=== PATIENT | female | born 1980 | race Caucasian/White ===

== ENCOUNTER 2017-08-11 05:06 | Day surgery (SDC) | payer BC, OTHER ==
[2017-08-08 17:31] VITALS: BMI 33.9
[2017-08-11] MEDS ORDERED: fentaNYL CITRATE 250 MCG/5 ML VIAL ONE (13:14)
[2017-08-11] MEDS ORDERED: ePHEDrine SULFATE 50 MG/1 ML AMPULE ONE (13:14)
[2017-08-11] MEDS ORDERED: MIDAZOLAM HCL 2 MG/2 ML SINGLE DOSE VIAL ONE ×2 (13:15)
[2017-08-11] MEDS ORDERED: PROPOFOL 20 ML ONE ×2 (13:15)
[2017-08-11] MEDS ORDERED: LIDOCAINE HCL/PF 2% SDV 5ML VIAL ONE (13:17)
[2017-08-11] MEDS ORDERED: DESFLURANE GAS 240 ML BOTTLE IH ONE (13:20)
[2017-08-11] MEDS ORDERED: SEVOFLURANE 250 ML BTL ONE (13:20)
[2017-08-11] MEDS ORDERED: VASOPRESSIN 20 UNITS/ML VIAL IV ONE (13:40)
--- NOTE | 2017-08-11 13:43 | HP ---
Past Medical History - Primary Care Physician PCP:: Que Kendrick - Admission Chief Complaint: 37yo P1 with cystocele and rectocele admitted for vaginal AP repair. History of Present Illness: Pt with c/o rectocele and needs to insert her finger to press on posterior vagina with bowel movements. 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: No: Alzheimer's, CVA, Dementia, Migraine, Multiple Sclerosis, Peripheral Neuropathy, Parkinson's, Seizure, Syncope, TIA, Vertigo, Other Cardiovascular: No: AFIB, Aneurysm, Aortic Insufficiency, Aortic Stenosis, CAD, CHF, Deep Vein Thrombosis, HTN, Hyperlipdemia, MS, Mitral Insufficiency, Mitral Stenosis, Murmur, Pulmonary Hypertension, Other Pulmonary: No: Asthma, Bronchitis, Cancer, COPD, O2 Dependent, Pneumonia, Previously Intubated, Pulmonary Embolus, Pulmonary Fibrosis, Sleep Apnea, Other Gastrointestinal: No: Ascites, Cancer, Constipation, Crohn's Disease, Diverticulitis, Diverticulosis, Esophageal Varices, Gastritis, GERD, GI Bleed, Hemorrhoids, Hiatal Hernia, Inflamatory Bowel Disease, Irritable Bowel Disease, Pancreatitis, Peptic Ulcer Disease, Ulcerative Colitis, Other Hepatobiliary: No: Cirrhosis, Cholelithiasis, Cholecystitis, Choledocholithiasis , Hepatitis A, Hepatitis B, Hepatitis C, Other Renal/: No: Renal Failure, Renal Inusuff, BPH, Cancer, Hematuria, Hemodialysis , Neurogenic Bladder, Renal Calculi, UTI, Other Reproductive: No: Ectopic , Endometriosis, Fibroids, PID, Polycystic Ovary Syndrome, Postmenopausal, Other ...Para: 1 Heme/Onc: No: Anemia, B12 Deficiency, Bleeding Disorder, Cancer, Current Chemotherapy, Current Radiation Therapy, Hemochromatosis, Hypercoaguable State, Myeloproliferative Synd, Sickle Cell Disease, Sickle Cell Trait, Thrombocytopenia, Other Infectious Disease: No: AIDS, C-Diff, Herpes Zoster, HIV, MRSA, STD's, Tuberculosis, VREF, Other Psych: No: Addictions, Anxiety, Bipolar, Depression, Panic, Psychosis, Schizophrenia, Other Musculoskeletal: No: Bursitis, Chronic low back pain, Hemiparesis, Hemiplegia, Osteoarthritis, Paraplegia, Other Rheumatology: No: Fibromyalgia, Gout, Lupus, Rheumatoid Arthritis, Sarcoidosis, Vasculitis, Other ENT: No: Allergic Rhinitis, Sinusitis, Other Endocrine: No: [place]'s Disease, Osiris's Disease, Diabetes Insipidus, Diabetes Mellitus, Hyperparathyroidism, Hyperthyroidism, Hypothyroidism, Osteopenia, SIADH, Other Dermatology: No: Basal Cell, Cellulitis, Eczema, Melanoma, Psoriasis, Squamous Cell, Other - Past Surgical History Past Surgical History: Yes: None Hx Myomectomy: No Hx Transabdominal Cerclage: No - Smoking History Smoking history: Never smoked - Alcohol/Substance Use Hx Alcohol Use: Yes (socially) History of Substance Use: reports: None - Social History Usual Living Arrangement: Yes: Alone, With Child ADL: Independent History of Recent Travel: No Home Medications - Allergies Allergies/Adverse Reactions: Allergies Allergy/AdvReac Type Severity Reaction Status Date / Time No Known Drug Allergies Allergy Verified 08/08/17 17:32 - Home Medications Home Medications: Ambulatory Orders NK [No Known Home Medication] 08/08/17 Family Disease History - Family Disease History Family Disease History: Other: Mother (HTN) Review of Systems - Review of Systems Constitutional: reports: No Symptoms Eyes: reports: No Symptoms HENT: reports: No Symptoms Neck: reports: No Symptoms Cardiovascular: reports: No Symptoms Respiratory: reports: No Symptoms Gastrointestinal: reports: Constipation Genitourinary: reports: No Symptoms Breasts: reports: No Symptoms Reported Musculoskeletal: reports: No Symptoms Integumentary: reports: No Symptoms Neurological: reports: No Symptoms Endocrine: reports: No Symptoms Hematology/Lymphatic: reports: No Symptoms Psychiatric: reports: No Symptoms Pain Intensity: 0 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: Vital Signs Temperature 98.1 F 08/11/17 12:22 Pulse Rate 61 08/11/17 12:22 Respiratory Rate 18 08/11/17 12:22 Blood Pressure 106/69 08/11/17 12:22 O2 Sat by Pulse Oximetry (%) 99 08/11/17 12:31 Constitutional: Yes: Well Nourished, No Distress, Calm Eyes: Yes: WNL, Conjunctiva Clear, EOM Intact HENT: Yes: WNL, Atraumatic, Normocephalic Neck: Yes: WNL, Supple, Trachea Midline Cardiovascular: Yes: WNL, Regular Rate and Rhythm Respiratory: Yes: WNL, Regular, CTA Bilaterally Gastrointestinal: Yes: WNL ...Rectal Exam: Yes: WNL Renal/: Yes: WNL Pelvis: Yes: WNL External Genitalia: Yes: Normal Internal Exam Deferred: No Vaginal Exam: Yes: Other (Rectocele, cystocele) Cervix: Yes: Normal Uterus: Yes: Normal Adnexa: Normal: Left, Right Musculoskeletal: Yes: WNL Extremities: Yes: WNL Edema: No Integumentary: Yes: WNL Neurological: Yes: WNL, Alert, Oriented ...Motor Strength: WNL Psychiatric: Yes: WNL, Alert, Oriented Assessment/Plan 37yo P1 admitted for rectocele and cystocele repair. We discussed the risks, benefits, and alternatives of surgery, including but not limited to bleeding, pain, infection, dyspareunia, recurrent symotoms. The pt was also advised that all surgeries have risks and no guarantees can be provided.
[2017-08-11] MEDS ORDERED: DEXAMETHASONE SOD PHOSPHATE 4 MG/1 ML VIAL ONE (13:44)
[2017-08-11] MEDS ORDERED: ceFAZolin SODIUM 1 GM VIAL IVPB ONE (13:56)
[2017-08-11] MEDS ORDERED: ACETAMINOPHEN INJECTION 100 ML IVPB ONE (14:15)
[2017-08-11] MEDS ORDERED: KETOROLAC TROMETHAMINE 30 MG/1 ML VIAL ONE (14:22)
[2017-08-11] MEDS ORDERED: ONDANSETRON 4 MG/2 ML VIAL IVPUSH PRN (15:43)
[2017-08-11] MEDS ORDERED: PROMETHAZINE HCL 25 MG/1 ML VIAL IVPB PRN (15:43)
[2017-08-11] MEDS ORDERED: LACTATED RINGERS SOLUTION 1,000 ML IV SCH (15:45)
--- NOTE | 2017-08-11 15:50 | OP ---
Operative Note - Note: Operative Date: 08/11/17 Pre-Operative Diagnosis: Retocele Operation: Posterior vaginal repair Findings: Rectocele Post-Operative Diagnosis: Same as Pre-op Surgeon: Que Kendrick Senior Escrow Officer: Mook Farley Anesthesiologist/POULTRY PICKING MACHINE TENDER: Cyril Murguia Anesthesia: General Specimens Removed: Vaginal mucosa Estimated Blood Loss (mls): 80 Drains & Tubes with Location: Straight cath Drains, Volume Out (mls): 425 Blood Volume Replaced (mls): 0 Fluid Volume Replaced (mls): 1,000 Operative Report Dictated: Yes
--- NOTE | 2017-08-11 16:38 | DS ---
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 Vital Signs: Vital Signs Temperature 98.6 F 08/11/17 15:38 Pulse Rate 73 08/11/17 16:00 Respiratory Rate 21 08/11/17 16:00 Blood Pressure 109/61 08/11/17 16:00 O2 Sat by Pulse Oximetry (%) 100 08/11/17 16:00 Constitutional: Yes: Well Nourished, No Distress, Calm Eyes: Yes: WNL, Conjunctiva Clear HENT: Yes: WNL, Atraumatic, Normocephalic Neck: Yes: WNL, Supple, Trachea Midline Cardiovascular: Yes: WNL, Regular Rate and Rhythm Respiratory: Yes: WNL, Regular, CTA Bilaterally Gastrointestinal: Yes: WNL, Normal Bowel Sounds, Soft ...Rectal Exam: Yes: Deferred Renal/: Yes: WNL Pelvis: Yes: WNL Internal Exam Deferred: No Vaginal Exam: Yes: Other (vaginal packing removed- lightly stained) Musculoskeletal: Yes: WNL Extremities: Yes: WNL Edema: No Integumentary: Yes: WNL Wound/Incision: Yes: Clean/Dry, Well Approximated Neurological: Yes: WNL, Alert, Oriented ...Motor Strength: WNL Psychiatric: Yes: WNL, Alert, Oriented Discharge Summary Reason For Visit: RECTOCELE W/O MENTION OF UTER PROLAPSE Rectocele Procedures: Principal: Posterior vaginal repair Hospital Course: Normal recovery Condition: Good - Instructions Diet, Activity, Other Instructions: Dr. Que Kendrick Manager Aviation discharge instructions Physical activity Resume your normal everyday activity as tolerated no heavy lifting or exercise until seen by your surgeon. You may walk unlimited katy of and climb stairs. You may resume driving the car when you feel safe and comfortable behind the wheel. No sexual activity as instructed by Dr. Kendrick. Wound care If you have a bandage, leave it on, and keep dry for 48-72 hours. After that time discard the outer bandage. If they are tapes on the skin under the out of bandage leave them in place. They will peel off in the next 7 to 10 days. Do Not Peel them off. You may shower the day after surgery. If there are tapes present on the skin, you may shower over them. Diet There are no dietary restrictions. Eat healthy, high-fiber foods. Drink 6 to 8 glasses of liquid each day. This will assist in keeping your bowels are regular. Pain management You may take Tylenol or acetaminophen or Ibuprofen (for example, Motrin, Advil etc.) from my pain prescription medication is ordered should be taken as prescribed for moderate to severe pain. Call Dr. Kendrick for any of the following: Severe pain not relieved by medication Fever of 101 or higher Excessive bleeding or drainage on dressing Inability to urinate Call the office at [phone] for an appointment in seven days. Referrals: Que Kendrick MD [Staff Physician] - Disposition: HOME - Home Medications Comprehensive Discharge Medication List: Ambulatory Orders NK [No Known Home Medication] 08/08/17
[2017-08-11] MEDS ORDERED: HYDROmorphone HCL CARPU-JECT 2 MG/1 ML DISP.SYRIN ONE (16:51)
[2017-08-11] MEDS: HYDROmorphone HCL CARPU-JECT 2 MG/1 ML DISP.SYRIN IVPUSH PRN ×2 (17:00→17:10)
[2017-08-11] MEDS ORDERED: oxyCODONE HCL 5 MG TABLET ONE (18:22)
--- NOTE | 2017-08-11 18:29 | OP ---
DATE OF OPERATION: 08/11/2017 PREOPERATIVE DIAGNOSIS: Vaginal rectocele. POSTOPERATIVE DIAGNOSIS: Vaginal rectocele. PROCEDURE: Posterior vaginal repair. SURGEON: Que Kendrick M.D. SUPERVISOR ELECTRONICS ASSEMBLY: Mook Farley M.D. ANESTHESIOLOGIST: Cyril Murguia M.D. ANESTHESIA: General. COMPLICATIONS: None. ESTIMATED BLOOD LOSS: 80 mL. INTRAVENOUS FLUIDS: 1000 mL. URINE OUTPUT: 425 mL of clear urine at the end of the procedure. PATHOLOGY: Vaginal mucosa. DESCRIPTION OF PROCEDURE: The patient was met preoperatively. Risks, benefits, and alternatives of surgery were discussed. All questions were answered. The patient was then brought to the OR with the IV running. She was placed on the surgical table in the supine position. The general anesthesia was achieved without difficulty. The patient was then placed in a dorsal lithotomy position using adjustable Aguila stirrups. A timeout procedure was conducted as per standard protocol. The patient was then prepped and draped in the usual sterile fashion. A bimanual examination was performed under anesthesia and outlined the rectocele. A mild cystocele was also noted, but due to patient's lack of symptoms, the decision was made to not perform cystocele repair. The upper extent of the vaginal rectocele was identified. The Allis clamp was applied to the posterior vaginal mucosa over the most distal aspect of the vaginal rectocele. Two clamps were also applied to the posterior vaginal mucosa at the level of the hymenal ring. The clamps were elevated, creating a triangle. A longitudinal incision was then made transversely along the posterior fourchette. A Karyn clamp was then inserted underneath the posterior vaginal mucosa, and the vaginal mucosa was dissected away from the perirectal fascia using a Karyn clamp. The vaginal mucosa was then incised along the posterior space. An additional incision was made along the perineal body, and a triangular fragment of the skin was removed from the perineal body. A vertical incision along the posterior vaginal mucosa was then extended to the apex of the rectocele. The perirectal fascia was then dissected away from the posterior vaginal mucosa using sharp and blunt dissection. Good hemostasis was maintained with judicious use of cautery. Once the posterior vaginal mucosa was dissected away from the rectovaginal fascia, a finger was placed inside the rectum to palpate the rectum as well as to outline the area of repair. The gloves were then changed, and a finger was inserted inside the vagina, pushing the rectocele down. The levator ani muscles were identified bilaterally and plicated using a 1-0 Vicryl suture. The apex of the rectocele was also identified, and a 1-0 Vicryl suture was used to plicate the rectovaginal fascia. About 5 or 6 sutures were placed to reapproximate the rectovaginal fascia, and the levator ani muscles. Once this was completed, the excess of vaginal mucosa was excised, and the vaginal mucosa was reapproximated in the middle using a 0 Vicryl running, locking suture. Once the closure of the posterior vaginal wall was completed, at the level of the posterior fourchette, a former hymenal ring was reconstructed. A perineal body was then repaired to approximate the vulvar cavernosus muscles. Once that was completed, the perineal skin was closed with subcutaneous stitch using a 1-0 Vicryl suture. Once the repair was completed, the hemostasis was confirmed. All of the instruments were removed from the patient. Sponge, lap, and instrument counts were correct. A rectal examination was performed, and no rectal sutures were palpated. The patient tolerated the procedure well and was transferred to recovery room in stable condition. Julissa [id number]
--- NOTE | 2017-08-11 19:07 | PN ---
Progress Note (SOAP) - Subjective Chief Complaint: I was called to pt's bed in [facility]. Pt was noted to have some vaginal bleeding through the packing. The pt was noted to have eaten regular food. She has some mild vaginal pain and no other complaints History of Present Illness: POD #0 s/p posterior vaginal repair with vaginal packing in place - Current Medications Current Medications: Active Medications Hydromorphone HCl (Dilaudid Injection -) 0.5 mg IVPUSH [id number] PRN PRN Reason: PAIN-PACU ORDER X 4 DOSES ONLY Last Admin: 08/11/17 17:10 Dose: 0.5 mg Lactated Ringer's (Lactated Ringers Solution) 1,000 mls @ 125 mls/hr IV ASDIR RANDY Ondansetron HCl (Zofran Injection) 4 mg IVPUSH Q6H PRN PRN Reason: NAUSEA AND/OR VOMITING Oxycodone HCl (Roxicodone -) 10 mg PO Q4H PRN PRN Reason: PAIN LEVEL > 4 Promethazine HCl (Phenergan Injection -) 12.5 mg IVPB Q6H PRN PRN Reason: NAUSEA-FOR RESCUE AFTER 15 MIN - Objective Vital Signs: Vital Signs Temperature 98.6 F 08/11/17 15:38 Pulse Rate 67 08/11/17 18:05 Respiratory Rate 16 08/11/17 18:05 Blood Pressure 101/64 08/11/17 18:05 O2 Sat by Pulse Oximetry (%) 98 08/11/17 18:05 Constitutional: Yes: Well Nourished, No Distress, Calm Eyes: Yes: WNL, Conjunctiva Clear, EOM Intact HENT: Yes: WNL, Atraumatic, Normocephalic Neck: Yes: WNL, Supple, Trachea Midline Cardiovascular: Yes: WNL, Regular Rate and Rhythm Respiratory: Yes: WNL, Regular, CTA Bilaterally Gastrointestinal: Yes: WNL, Normal Bowel Sounds, Soft, Abdomen, Obese ...Rectal Exam: Yes: Deferred Genitourinary: Yes: Vaginal Bleeding (vaginal packing in place with mild bleeding.) Musculoskeletal: Yes: WNL Extremities: Yes: WNL Peripheral Pulses WNL: No Edema: No Integumentary: Yes: WNL Wound/Incision: Yes: Bleeding (mild bleeding; packing NOT removed) Neurological: Yes: WNL, Alert, Oriented ...Motor Strength: Yes: WNL Psychiatric: Yes: WNL Assessment/Plan 37yo P1 s/p rectocele repair. Pt with mild postop bleeding. She had just eaten regular food and cannot return to OR given that bleeding is mild, patient is asymptomatic, and general anesthesia presents a risk. However, pt will be admitted for observation. NPO diet in case return to OR. Plan to follow CBC
[2017-08-11] MEDS ORDERED: ACETAMINOPHEN 1000 MG/100 ML VIAL (NON FORMULARY) IVPB PRN (19:23)
[2017-08-11] MEDS ORDERED: LACTATED RINGERS SOLUTION 1,000 ML/1,000 ML INFUS.BAG IV SCH (19:30)
[2017-08-11 20:14] LABS: BASO % 0.2 % (0-2.0); HEMATOCRIT 36.4 % (32.4-45.2); HEMOGLOBIN 12.2 GM/dL (10.7-15.3); LYMPH % 3.1 % (8-40); MCH 29.7 pg (25.7-33.7); MCHC 33.5 g/dl (32.0-36.0); MEAN CELL VOLUME 88.9 fl (80-96); MEAN PLT VOLUME 8.9 fl (7.5-11.1); MONO % 1.8 % (3.8-10.2); NEUT % 94.9 % (42.8-82.8); PLATELET COUNT 283 K/MM3 (134-434); RDW 13.4 % (11.6-15.6); WHITE BLOOD COUNT 18.3 K/mm3 (4.0-10.0)
[2017-08-11] MEDS: oxyCODONE HCL 5 MG TABLET PO PRN (22:20)
[2017-08-12 00:04] LABS: BASO % 0.1 % (0-2.0); HEMATOCRIT 32.7 % (32.4-45.2); HEMOGLOBIN 10.9 GM/dL (10.7-15.3); LYMPH % 7.1 % (8-40); MCH 29.4 pg (25.7-33.7); MCHC 33.3 g/dl (32.0-36.0); MEAN CELL VOLUME 88.3 fl (80-96); MEAN PLT VOLUME 8.4 fl (7.5-11.1); MONO % 4.1 % (3.8-10.2); NEUT % 88.7 % (42.8-82.8); PLATELET COUNT 275 K/MM3 (134-434); RDW 12.9 % (11.6-15.6); WHITE BLOOD COUNT 15.4 K/mm3 (4.0-10.0)
[2017-08-12] MEDS ORDERED: ACETAMINOPHEN INJECTION 100 ML IVPB ONE (03:28)
[2017-08-12] MEDS: oxyCODONE HCL 5 MG TABLET PO PRN ×2 (08:01→12:35)
[2017-08-12 10:09] LABS: BASO % 0.4 % (0-2.0); EOS % 0.4 % (0-4.5); HEMATOCRIT 31.7 % (32.4-45.2); HEMOGLOBIN 10.2 GM/dL (10.7-15.3); LYMPH % 25.2 % (8-40); MCH 29.1 pg (25.7-33.7); MCHC 32.4 g/dl (32.0-36.0); MEAN PLT VOLUME 8.3 fl (7.5-11.1); MONO % 7.2 % (3.8-10.2); NEUT % 66.8 % (42.8-82.8); PLATELET COUNT 244 K/MM3 (134-434); RBC 3.52 M/mm3 (3.60-5.2); RDW 13.1 % (11.6-15.6); WHITE BLOOD COUNT 11.6 K/mm3 (4.0-10.0)
--- NOTE | 2017-08-12 11:10 | PN ---
Progress Note (SOAP) - Subjective Chief Complaint: Pt is feeling well but she has some mild vaginal pain and pressure due to vaginal packing. History of Present Illness: POD #1 s/p posterior vaginal repair with vaginal packing in place The bleeding is scant-mild - Current Medications Current Medications: Active Medications Acetaminophen (Ofirmev Injection -) 1,000 mg IVPB Q6H PRN PRN Reason: PAIN LEVEL 1-5 Last Admin: 08/12/17 03:34 Dose: 1,000 mg Hydromorphone HCl (Dilaudid Injection -) 0.5 mg IVPUSH [id number] PRN PRN Reason: PAIN-PACU ORDER X 4 DOSES ONLY Last Admin: 08/11/17 17:10 Dose: 0.5 mg Lactated Ringer's (Lactated Ringers Solution) 1,000 ml in 1,000 mls @ 125 mls/ hr IV ASDIR RANDY Ondansetron HCl (Zofran Injection) 4 mg IVPUSH Q6H PRN PRN Reason: NAUSEA AND/OR VOMITING Oxycodone HCl (Roxicodone -) 10 mg PO Q4H PRN PRN Reason: PAIN LEVEL > 4 Last Admin: 08/12/17 08:01 Dose: 10 mg Promethazine HCl (Phenergan Injection -) 12.5 mg IVPB Q6H PRN PRN Reason: NAUSEA-FOR RESCUE AFTER 15 MIN - Objective Vital Signs: Vital Signs Temperature 98.9 F 08/12/17 08:00 Pulse Rate 58 L 08/12/17 08:00 Respiratory Rate 20 08/12/17 08:00 Blood Pressure 93/51 08/12/17 08:00 O2 Sat by Pulse Oximetry (%) 99 08/11/17 23:04 Constitutional: Yes: Well Nourished, No Distress, Calm Eyes: Yes: WNL, Conjunctiva Clear HENT: Yes: WNL, Atraumatic, Normocephalic Neck: Yes: WNL, Supple, Trachea Midline Cardiovascular: Yes: WNL, Regular Rate and Rhythm Respiratory: Yes: WNL, Regular, CTA Bilaterally Gastrointestinal: Yes: WNL, Normal Bowel Sounds, Soft, Abdomen, Obese ...Rectal Exam: Yes: Deferred Genitourinary: Yes: WNL, Other (Hurley in place) Musculoskeletal: Yes: WNL Extremities: Yes: WNL Peripheral Pulses WNL: Yes Edema: No Integumentary: Yes: WNL Wound/Incision: Yes: Clean/Dry, Well Approximated, Other (vagina packing with scant bloody drainage on exam/pad) Neurological: Yes: WNL, Alert, Oriented ...Motor Strength: Yes: WNL Psychiatric: Yes: WNL Labs Lab Results: CBC, BMP 08/12/17 09:50 Assessment/Plan 37yo P1 s/p rectocele repair. Pt w/o significant bleeding. Plan to d/c home with packing in place and f/u in-office in 1-2 days Precautions reviewed Hurley cath to be removed. Rx sent to pharmacy
[2017-08-12 12:15] VITALS: BP 103/62; PULSE 96; TEMP 98.6
[2017-08-12] MEDS ORDERED: BISACODYL 10 MG SUPP.RECT RC ONE (15:00)
--- NOTE | 2017-08-15 13:31 | PATH ---
Surgical Pathology Report Patient Name: NIKKY SHEN [facility] [place]. Rec. #: [id number] /Age/Gender: 1980 (Age: 37) / F Account: [id number] Location: [facility] SURGICAL Taken: 08/11/2017 Received: 08/14/2017 Reported: 08/15/2017 Physicians: Que Kendrick M.D. Specimen(s) Received VAGINAL POSTERIOR MUCOSA Clinical History Cystocele, rectocele Final Diagnosis VAGINAL MUCOSA, EXCISION:SQUAMOUS MUCOSA WITH FOCAL VASCULAR CONGESTION AND HEMORRHAGE. Electronically Signed Tiffanie Honeycutt M.D. Gross Description Received in formalin labeled "posterior vaginal mucosa," is a 6.0 x 4.0 x 0.4 cm aggregate of multiple trotter, irregular portions of soft tissue, consistent with vaginal mucosa. [employer] sections are submitted in one cassette. /08/14/201708/14/2017
== END 2017-08-12 17:10 | disposition home or self-care (01) ==
LOC: JASU-SURG 05:06 → J3W 08:40 → JASU-SURG 08-12 17:10
PROVIDERS: ATTEND Obstetrics & Gynecology
PROC: 0JQC0ZZ Repair Pelvic Region Subcutaneous Tissue and Fascia, Open Approach (ICD-10-PCS; principal; 2017-08-11 13:00)
DX: N81.6 Rectocele (principal)
CPT/HCPCS: 36415; 84702; 85025; 86850; 86900; 86901; 88302-TC; 94010; 94760

== ENCOUNTER 2017-08-18 10:50 | Day surgery (SDC) | payer BC, OTHER ==
[2017-08-18 11:04] VITALS: BMI 32.6
--- NOTE | 2017-08-18 12:15 | PDOC ---
History of Present Illness - General Chief Complaint: Vaginal Bleeding Stated Complaint: POST-SURG/ BLEEDING Time Seen by Provider: 08/18/17 12:05 History Source: Patient Exam Limitations: No Limitations - History of Present Illness Initial Comments: 08/18/17 12:13 37-year-old female status post rectocele repair 7 days previously presents to the ER with severe vaginal bleeding and mild lower abdominal pain. Patient denies fevers/chills/nausea/vomiting. Patient is unable tolerate evaluation in the ELECTRIC MOTOR MECHANIC's office. Patient will require admission to the operating room for sedation and the evaluation. REVIEW OF SYSTEMS CONSTITUTIONAL: No fever, no chills, no fatigue EYES: No visual changes ENT: No ear pain, no sore throat CARDIOVASCULAR: No chest pain, no palpitations RESPIRATORY: No cough, no SOB GI: No abdominal pain, no nausea, no vomiting, no constipation, no diarrhea GENITOURINARY: No dysuria, no frequency, no hematuria; + vb MUSKULOSKELETAL: No backpain, no joint pain, no myalgias SKIN: No rash NEURO: No headache EXAMINATION CONSTITUTIONAL: Well-appearing; well-nourished; in no apparent distress HEAD: Normocephalic; atraumatic EYES: PERRL; EOM intact ENMT: External appears normal; normal oropharynx NECK: Supple; non-tender; no cervical lymphadenopathy CARD: Normal S1, S2; no murmurs, rubs, or gallops RESP: Normal chest excursion with respiration; breath sounds clear and equal bilaterally; no wheezes, rhonchi, or rales ABD: Soft, non-distended; non-tender; no palpable organomegaly, no palpable hernias; PE: deffered EXT: Normal ROM in all four extremities; non-tender to palpation; distal pulses intact SKIN: Warm, dry, no rash NEURO: No focal neurological deficiencies. Past History - Past Medical History Allergies/Adverse Reactions: Allergies Allergy/AdvReac Type Severity Reaction Status Date / Time No Known Drug Allergies Allergy Verified 08/18/17 11:01 Home Medications: Ambulatory Orders Cephalexin [Keflex] 500 mg PO TID 7 Days #21 capsule 08/11/17 Oxycodone HCl/Acetaminophen [Percocet 5-325 mg Tablet -] 1 - 2 tab PO Q6H PRN # 20 tab MDD 8 02/02/18 Lactulose [Kristalose] 10 gm PO BID PRN 15 Days #30 packet 08/12/17 Anemia: No Asthma: No Cancer: No Cardiac Disorders: No CVA: No COPD: No CHF: No Dementia: No Diabetes: No GI Disorders: No Disorders: No HTN: No Hypercholesterolemia: No Liver Disease: No Seizures: No Thyroid Disease: No - Surgical History Abdominal Surgery: No Appendectomy: No Cardiac Surgery: No Cholecystectomy: No Lung Surgery: No Neurologic Surgery: No Orthopedic Surgery: No - Suicide/Smoking/Psychosocial Hx Smoking History: Never smoked Information on smoking cessation initiated: No Hx Alcohol Use: Yes (socially) Drug/Substance Use Hx: No Substance Use Type: None Hx Substance Use Treatment: No *Physical Exam - Vital Signs Last Vital Signs Temp Pulse Resp BP Pulse Ox 98.0 F 87 18 126/74 100 08/18/17 11:02 08/18/17 11:02 08/18/17 11:02 08/18/17 11:02 08/18/17 11:02 Medical Decision Making - Medical Decision Making 08/18/17 12:14 37-year-old female status post rectocele repair presents with vaginal bleeding which may be related to wound dehiscence or failed suture of the incision. Patient will require intraoperative evaluation and possible repair. Will admit to or. *DC/Admit/Observation/Transfer Diagnosis at time of Disposition: Vaginal bleeding - Discharge Dispostion Condition at time of disposition: Fair Admit: Yes - Referrals - Patient Instructions - Post Discharge Activity
[2017-08-18 12:26] LABS: BASO % 0.6 % (0-2.0); EOS % 1.4 % (0-4.5); HEMATOCRIT 38.6 % (32.4-45.2); HEMOGLOBIN 12.6 GM/dL (10.7-15.3); LYMPH % 14.4 % (8-40); MCH 29.2 pg (25.7-33.7); MCHC 32.5 g/dl (32.0-36.0); MEAN CELL VOLUME 89.8 fl (80-96); MEAN PLT VOLUME 8.1 fl (7.5-11.1); MONO % 6.5 % (3.8-10.2); NEUT % 77.1 % (42.8-82.8); PLATELET COUNT 388 K/MM3 (134-434); RDW 13.8 % (11.6-15.6); WHITE BLOOD COUNT 12.9 K/mm3 (4.0-10.0)
[2017-08-18 12:41] LABS: INR 1.14 (0.82-1.09); PROTHROMBIN TIME (PATIENT) 12.9 SEC (9.98-11.88)
[2017-08-18 12:44] LABS: ACTIVATED PTT 29.8 SECONDS (26.9-34.4)
[2017-08-18 13:13] LABS: ALBUMIN 3.9 g/dl (3.4-5.0); ALK PHOS 57 U/L (45-117); ANION GAP 10 (8-16); BILIRUBIN,TOTAL 0.8 mg/dL (0.2-1.0); BLOOD UREA NITROGEN 8 mg/dL (7-18); CHLORIDE 107 mmol/L (98-107); CO2 23 mmol/L (21-32); CREATININE 0.5 mg/dL (0.55-1.02); GLUCOSE,RANDOM 79 mg/dL (74-106); SGPT/ALT 15 U/L (12-78); SODIUM 140 mmol/L (136-145); TOT PROT 7.4 g/dl (6.4-8.2)
[2017-08-18 13:16] LABS: POTASSIUM 4.3 mmol/L (3.5-5.1); SGOT/AST 17 U/L (15-37)
[2017-08-18] MEDS ORDERED: DEXAMETHASONE SOD PHOSPHATE 4 MG/1 ML VIAL ONE (13:42)
[2017-08-18] MEDS ORDERED: MIDAZOLAM HCL 2 MG/2 ML SINGLE DOSE VIAL ONE (13:42)
[2017-08-18] MEDS ORDERED: SUCCINYLCHOLINE CHLORIDE 200 MG/10 ML VIAL ONE (13:42)
[2017-08-18] MEDS ORDERED: LIDOCAINE HCL 2% 100 MG/5 ML DISP.SYRIN ONE (13:42)
[2017-08-18] MEDS ORDERED: PROPOFOL 20 ML ONE ×2 (13:42→14:00)
[2017-08-18] MEDS ORDERED: ceFAZolin SODIUM 1 GM VIAL IVPB ONE ×2 (14:05)
[2017-08-18] MEDS ORDERED: oxyCODONE HCL 5 MG TABLET PO PRN (14:34)
[2017-08-18] MEDS ORDERED: ONDANSETRON 4 MG/2 ML VIAL IVPUSH PRN (14:34)
[2017-08-18] MEDS ORDERED: LACTATED RINGERS SOLUTION 1,000 ML IV SCH (14:45)
[2017-08-18 16:17] VITALS: TEMP 98.5
--- NOTE | 2017-08-18 16:47 | HP ---
Past Medical History - Primary Care Physician PCP:: Que Kendrick - Admission Chief Complaint: 37yo female s/p rectocele repair 7 days ago with c/o heavy vaginal bleeding since 2-3 days ago. History of Present Illness: Pt reports severe chronic constipation and she was straining followed by vaginal bleeding that started 2-3 days ago. Pt was seen in the office 08/19/2017 but could not tolerate a thorough exam due to pain. She has been using multiple stool softeners/laxatives and still w/o BM for days. Pt states not able to have regular BM in last 2d still. She reports that she went to work today but began bleeding again and came to ER. No pain or fever. 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: No: Alzheimer's, CVA, Dementia, Migraine, Multiple Sclerosis, Peripheral Neuropathy, Parkinson's, Seizure, Syncope, TIA, Vertigo Cardiovascular: No: AFIB, Aneurysm, Aortic Insufficiency, Aortic Stenosis, CAD, CHF, Deep Vein Thrombosis, HTN, Hyperlipdemia, SD, Mitral Insufficiency, Mitral Stenosis, Murmur, Pulmonary Hypertension Pulmonary: No: Asthma, Bronchitis, Cancer, COPD, O2 Dependent, Pneumonia, Previously Intubated, Pulmonary Embolus, Pulmonary Fibrosis, Sleep Apnea Gastrointestinal: No: Ascites, Cancer, Constipation, Crohn's Disease, Diverticulitis, Diverticulosis, Esophageal Varices, Gastritis, GERD, GI Bleed, Hemorrhoids, Hiatal Hernia, Inflamatory Bowel Disease, Irritable Bowel Disease, Pancreatitis, Peptic Ulcer Disease, Ulcerative Colitis Hepatobiliary: No: Cirrhosis, Cholelithiasis, Cholecystitis, Choledocholithiasis , Hepatitis A, Hepatitis B, Hepatitis C Renal/: No: Renal Failure, Renal Inusuff, BPH, Cancer, Hematuria, Hemodialysis , Neurogenic Bladder, Renal Calculi, UTI Reproductive: No: Ectopic , Endometriosis, Fibroids, PID, Polycystic Ovary Syndrome, Postmenopausal ...Para: 1 () Heme/Onc: No: Anemia, B12 Deficiency, Bleeding Disorder, Cancer, Current Chemotherapy, Current Radiation Therapy, Hemochromatosis, Hypercoaguable State, Myeloproliferative Synd, Sickle Cell Disease, Sickle Cell Trait, Thrombocytopenia Infectious Disease: No: AIDS, C-Diff, Herpes Zoster, HIV, MRSA, STD's, Tuberculosis, VREF Psych: Yes: Other. No: Addictions, Anxiety, Bipolar, Depression, Panic, Psychosis, Schizophrenia Musculoskeletal: Yes: Other. No: Bursitis, Chronic low back pain, Hemiparesis, Hemiplegia, Osteoarthritis, Paraplegia Rheumatology: Yes: Other. No: Fibromyalgia, Gout, Lupus, Rheumatoid Arthritis, Sarcoidosis, Vasculitis ENT: No: Allergic Rhinitis, Sinusitis Endocrine: No: Elizabeth's Disease, Osiris's Disease, Diabetes Insipidus, Diabetes Mellitus, Hyperparathyroidism, Hyperthyroidism, Hypothyroidism, Osteopenia, SIADH Dermatology: No: Basal Cell, Cellulitis, Eczema, Melanoma, Psoriasis, Squamous Cell - Past Surgical History Past Surgical History: Yes: None Hx Myomectomy: No Hx Transabdominal Cerclage: No Additional Surgical History: Posterior Vaginal repair - Smoking History Smoking history: Never smoked Have you smoked in the past 12 months: No - Alcohol/Substance Use Hx Alcohol Use: Yes (socially) History of Substance Use: reports: None - Social History Usual Living Arrangement: Yes: With Child ADL: Independent History of Recent Travel: No Home Medications - Allergies Allergies/Adverse Reactions: Allergies Allergy/AdvReac Type Severity Reaction Status Date / Time No Known Drug Allergies Allergy Verified 08/18/17 11:01 - Home Medications Home Medications: Ambulatory Orders Cephalexin [Keflex] 500 mg PO TID 7 Days #21 capsule 08/11/17 Oxycodone HCl/Acetaminophen [Percocet 5-325 mg Tablet -] 1 - 2 tab PO Q6H PRN # 20 tab MDD 8 08/11/17 Lactulose [Kristalose] 10 gm PO BID PRN 15 Days #30 packet 08/12/17 Family Disease History - Family Disease History Family History: Unremarkable Family Disease History: Other: Mother (HTN) Review of Systems - Review of Systems Constitutional: reports: No Symptoms Eyes: reports: No Symptoms HENT: reports: No Symptoms Neck: reports: No Symptoms Cardiovascular: reports: No Symptoms Respiratory: reports: No Symptoms Gastrointestinal: reports: No Symptoms Genitourinary: reports: Vaginal Bleeding Breasts: reports: No Symptoms Reported Musculoskeletal: reports: No Symptoms Integumentary: reports: No Symptoms Neurological: reports: No Symptoms Endocrine: reports: No Symptoms Hematology/Lymphatic: reports: No Symptoms Psychiatric: reports: No Symptoms Pain Intensity: 0 Physical Exam-BOBBIN DISKER Vital Signs: Vital Signs Temperature 98.5 F 08/18/17 16:00 Pulse Rate 70 08/18/17 16:00 Respiratory Rate 18 08/18/17 16:00 Blood Pressure 129/65 08/18/17 16:00 O2 Sat by Pulse Oximetry (%) 100 08/18/17 15:45 Constitutional: Yes: Well Nourished, No Distress, Calm Eyes: Yes: WNL, Conjunctiva Clear HENT: Yes: WNL, Atraumatic, Normocephalic Neck: Yes: WNL, Supple, Trachea Midline Cardiovascular: Yes: WNL, Regular Rate and Rhythm Respiratory: Yes: WNL, Regular, CTA Bilaterally Gastrointestinal: Yes: WNL, Normal Bowel Sounds, Soft ...Rectal Exam: Yes: Deferred Renal/: Yes: Vaginal Bleeding Pelvis: Yes: WNL External Genitalia: Yes: Normal Internal Exam Deferred: Yes Musculoskeletal: Yes: WNL Extremities: Yes: WNL Edema: No Integumentary: Yes: WNL Neurological: Yes: WNL, Alert, Oriented ...Motor Strength: WNL Psychiatric: Yes: WNL, Alert, Oriented Labs: CBC, BMP 08/18/17 12:17 08/18/17 12:17 Assessment/Plan 37yo P1 s/p posterior vaginal repair with vaginal bleeding x 2-3 days, unable to tolerate BOBBIN DISKER exam in the office. Pt will be admitted for EUA and possible revision of the posterior repair under anesthesia. We discussed the risks and benefits of surgery. Pt requested to proceed.
--- NOTE | 2017-08-18 16:59 | OP ---
Operative Note - Note: Operative Date: 08/18/17 Pre-Operative Diagnosis: Vaginal bleeding, s/p posterior vaginal repair 7d ago Operation: Revision of the posterior vaginal repair Findings: A small area of vaginal wound separation at the apex of the posterior repair with bleeding Post-Operative Diagnosis: Same as Pre-op Surgeon: Que Kendrick Grease Packer: Vasyl Goff Anesthesiologist/CUT OFF SAWYER LOG: Rajendra Carney Anesthesia: General Specimens Removed: None Estimated Blood Loss (mls): 5 Drains & Tubes with Location: None Blood Volume Replaced (mls): 0 Fluid Volume Replaced (mls): 400 Operative Report Dictated: Yes
[2017-08-18 19:00] VITALS: BP 123/96; PULSE 80
--- NOTE | 2017-08-19 15:20 | OP ---
DATE OF OPERATION: 08/18/2017 PREOPERATIVE DIAGNOSIS: Vaginal bleeding, status post posterior vaginal repair 7 days ago. POSTOPERATIVE DIAGNOSES: A small area of wound dehiscence at the apex of the posterior vaginal repair that was bleeding and constipation. SURGEON: Que Kendrick MD PROFESSOR COMPUTER SCIENCE: Vasyl Goff MD ANESTHESIA: General. ANESTHESIOLOGIST: Rajendra Carney MD INTRAVENOUS FLUIDS: 400 mL. ESTIMATED BLOOD LOSS: 5 mL. PATHOLOGY: None. COMPLICATIONS: None. PROCEDURE: Revision and repair of the wound dehiscence at the apex of the posterior vaginal repair. FINDINGS: As above. PROCEDURE: The patient was met preoperatively. Risks, benefits and alternatives of surgery were discussed. All questions were answered. The patient was then brought to the OR with the IV running. She was placed on the surgical table in the supine position. Once the general anesthesia was achieved, the patient was placed in a dorsal lithotomy position using adjustable Aguila stirrups. A timeout was conducted, as per standard protocol. The patient was then prepped and draped in the usual sterile fashion. Examination under anesthesia revealed a small wound dehiscence at the apex of the posterior vaginal repair with active bleeding. Vaginal retractors were used to adequately expose the apex of the posterior repair. The apex was then grasped with an Allis clamp. Several [id number] sutures were placed to approximate the edges of the posterior vaginal repair. The edges of the repair appeared healthy and with no evidence of infection. Once the sutures were applied, the approximation was excellent, and the bleeding had stopped completely, the entire length of the posterior vaginal repair was then examined and was noted to be completely intact. The survey of the apex once again revealed excellent approximation and hemostasis. The vaginal wall was then irrigated using copious amounts of normal saline and once again no bleeding was noted. A rectal examination was then performed and no sutures or defects were noted in the rectum. At that point, all of the instruments were removed. Sponge, laparotomy and instrument counts were correct. Once again, examination showed no vaginal bleeding and intact repair. The patient was then returned to supine position and transferred to the recovery room in stable condition. Julissa [id number]
== END 2017-08-18 19:03 | disposition home or self-care (01) ==
LOC: JER 10:50 → JASUSAT 12:15
PROVIDERS: ATTEND Obstetrics & Gynecology
PROC: 0JQC0ZZ Repair Pelvic Region Subcutaneous Tissue and Fascia, Open Approach (ICD-10-PCS; 2017-08-18)
PROC: 0JQC0ZZ Repair Pelvic Region Subcutaneous Tissue and Fascia, Open Approach (ICD-10-PCS; principal; 2017-08-18 13:00)
DX: T81.32XA Disruption of internal operation (surgical) wound, not elsewhere classified, initial encounter (principal); Y83.8 Other surgical procedures as the cause of abnormal reaction of the patient, or of later complication, without mention of misadventure at the time of the procedure; Y92.9 Unspecified place or not applicable; N93.8 Other specified abnormal uterine and vaginal bleeding; Z98.890 Other specified postprocedural states; N99.89 Other postprocedural complications and disorders of genitourinary system
CPT/HCPCS: 36415; 80053; 84703; 85025; 85610; 85730; 99282-25

== ENCOUNTER 2022-04-25 04:31 | Day surgery (SDC) | payer BC, OTHER ==
[2022-04-21 13:41] VITALS: BMI 35.4
[2022-04-25] MEDS ORDERED: MIDAZOLAM HCL 2 MG/2 ML SINGLE DOSE VIAL ONE (09:47)
[2022-04-25] MEDS ORDERED: PROPOFOL 20 ML ONE ×2 (10:20→10:34)
[2022-04-25] MEDS ORDERED: ceFAZolin SODIUM 1 GM VIAL IVPB ONE (10:30)
[2022-04-25] MEDS ORDERED: oxyCODONE HCL 5 MG TABLET PO PRN (11:32)
[2022-04-25] MEDS ORDERED: ONDANSETRON 4 MG/2 ML VIAL IVPUSH PRN (11:32)
[2022-04-25] MEDS ORDERED: LACTATED RINGERS SOLUTION 1,000 ML IV SCH (11:45)
[2022-04-25 13:15] VITALS: BP 125/74; PULSE 66; RESP 17; TEMP 97.1
== END 2022-04-25 13:00 | disposition home or self-care (01) ==
LOC: JASU-SURG 04:31
PROVIDERS: ATTEND Obstetrics & Gynecology
PROC: 0UJD8ZZ Inspection of Uterus and Cervix, Via Natural or Artificial Opening Endoscopic (ICD-10-PCS; 2022-04-25)
PROC: 0UDB7ZX Extraction of Endometrium, Via Natural or Artificial Opening, Diagnostic (ICD-10-PCS; principal; 2022-04-25 10:00)
DX: N92.0 Excessive and frequent menstruation with regular cycle (principal); N84.0 Polyp of corpus uteri
CPT/HCPCS: 88305-TC; 94760